=== PATIENT | male | born 1990 | race Caucasian/White ===

== ENCOUNTER 2017-02-07 16:44 | Inpatient (IN) | payer OTHER ==
[2017-02-07 18:01] VITALS: BMI 30.7
--- NOTE | 2017-02-07 20:14 | HP ---
COWS - Scale Resting Pulse: 2= [place] 101-120 Sweatin=Flushed/Facial Moisture Restless Observation: 5= Unable to Sit Still Pupil Size: 1= Pupils >than Normal Bone or Joint Aches: 4=Acute Joint/Muscle Pain Runny Nose/ Eye Tearin= Runny Nose/Eyes GI Upset > 30mins: 1= Stomach Cramp Tremor Observation: 1= Tremor [place], Not Seen Yawning Observation: 1= 1-2x During Session Anxiety or Irritability: 2=Irritable/Anxious Goose Flesh Skin: 0=Smooth Skin COWS Score: 21 Admission ROS S - HPI Chief Complaint: seeking detox for heroin withdrawal Allergies/Adverse Reactions: Allergies Allergy/AdvReac Type Severity Reaction Status Date / Time No Known Allergies Allergy Verified 02/07/17 19:35 History of Present Illness: 26 Y.O. MALE WITH OPIOID DEPENDENCE HERE FOR DETOX TXMENT. CLIENT IS KNOWN TO THIS PROGRAM. DENIES ANY DETOX THIS PAST YEAR. REPORTS LONGEST CLEAN 18 MONTHS RELAPSING A YEAR AGO. SELF REFERRED Exam Limitations: No Limitations - Ebola screening Have you traveled outside of the country in the last 21 days: No Have you had contact with anyone from an Ebola affected area: No Have you been sick,other than usual withdrawal symptoms: No Do you have a fever: No - Review of Systems Constitutional: Chills, Malaise, Night Sweats EENT: reports: Other (RUNNY NOSE) Respiratory: reports: No Symptoms reported Cardiac: reports: No Symptoms Reported GI: reports: Abdominal cramping : reports: No Symptoms Reported Musculoskeletal: reports: Joint Pain Integumentary: reports: No Symptoms Reported Neuro: reports: No Symptoms reported Endocrine: reports: No Symptoms Reported Hematology: reports: No Symptoms Reported Psychiatric: reports: Anxious Other Systems: Reviewed and Negative Patient History - Patient Medical History Hx Anemia: No Hx Asthma: No Hx Chronic Obstructive Pulmonary Disease (COPD): No Hx Cancer: No Hx Cardiac Disorders: No Hx Congestive Heart Failure: No Hx Hypertension: No Hx Hypercholesterolemia: No Hx Pacemaker: No HX Cerebrovascular Accident: No Hx Seizures: No Hx Dementia: No Hx Diabetes: No Hx Gastrointestinal Disorders: No Hx Liver Disease: No Hx Genitourinary Disorders: No Hx Sexually Transmitted Disorders: No Hx Renal Disease (ESRD): No Hx Thyroid Disease: No Hx Human Immunodeficiency Virus (HIV): No Hx Hepatitis C: No Hx Depression: No Hx Suicide Attempt: No Hx Bipolar Disorder: No Hx Schizophrenia: No Other Medical History: DENIES - Patient Surgical History Past Surgical History: Yes Hx Neurologic Surgery: No Hx Cataract Extraction: No Hx Cardiac Surgery: No Hx Lung Surgery: No Hx Breast Surgery: No Hx Breast Biopsy: No Hx Abdominal Surgery: No Hx Appendectomy: No Hx Cholecystectomy: No Hx Genitourinary Surgery: No Hx Section: No Hx Orthopedic Surgery: Yes (L -ANKLE 2009) Other Surgical History: R HEEL FX Anesthesia Reaction: No - PPD History Previous Implant?: Yes Documented Results: Negative w/o proof Implanted On Prior [facility] Admission?: Yes Date: 05/06/13 Results: 0MM PPD to be Administered?: Yes - Smoking Cessation Smoking history: Current every day smoker Have you smoked in the past 12 months: Yes Aproximately how many cigarettes per day: 10 Cigars Per Day: 0 Hx Chewing Tobacco Use: No Initiated information on smoking cessation: Yes 'Breaking Loose' booklet given: 02/07/17 - Substance & Tx. History Hx Alcohol Use: No Hx Substance Use: Yes Substance Use Type: Cocaine, Heroin Hx Substance Use Treatment: Yes ([facility]) - Substances Abused Heroin Route: Injection Frequency: Daily Amount used: 1.5 gm Age of first use: 24 Date of Last Use: 02/07/17 COCAINE Route: Injection Frequency: Daily Amount used: 1.5GM Age of first use: 24 Date of Last Use: 02/07/17 Family Disease History - Family Disease History Family History: Denies Admission Physical Exam S - Vital Signs Vital Signs: Vital Signs - 24 hr 02/07/17 17:59 Temperature 98.4 F Pulse Rate 107 H Respiratory 18 Rate Blood Pressure 132/81 - Physical General Appearance: Yes: Appropriately Dressed, Anxious HEENTM: Yes: EOMI, Normocephalic, Normal Voice, ASAEL, Pharynx Normal, Rhinorrhea Respiratory: Yes: Chest Non-Tender, Lungs Clear, Normal Breath Sounds, No Respiratory Distress, No Accessory Muscle Use Neck: Yes: No masses,lesions,Nodules, Supple, Trachea in good position Breast: Yes: Breast Exam Deferred Cardiology: Yes: Regular Rhythm, Regular Rate, S1, S2 Abdominal: Yes: Normal Bowel Sounds, Non Tender, Soft Genitourinary: Yes: Within Normal Limits Back: Yes: Normal Inspection Musculoskeletal: Yes: full range of Motion, Gait Steady Extremities: Yes: Normal Range of Motion, Non-Tender, Tremors Neurological: Yes: 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 NML intact, Fully Oriented, Alert, Motor Strength 5/5 Integumentary: Yes: Track Bob (BILATERAL UPPER EXTREMITIES) Lymphatic: Yes: Within Normal Limits - Diagnostic (1) Cocaine dependence Current Visit: Yes Status: Chronic Qualifiers: Substance use status: uncomplicated Qualified Code(s): F14.20 - Cocaine dependence, uncomplicated (2) Opioid dependence with withdrawal Current Visit: Yes Status: Chronic Cleared for Admission [facility] - Detox or Rehab [facility] Level of Care: Medically Managed Detox Regimen/Protocol: Methadone [facility] Breath Alcohol Content Breath Alcohol Content: 0 Urine Drug Screen - Results Drug Screen Negative: No Urine Drug Screen Results: ALHAJI-Cocaine, OPI-Opiates, MET-Methamphetamine
[2017-02-07] MEDS ORDERED: MENTHOL/PHENOL 1 EACH UD MM PRN (20:23)
[2017-02-07] MEDS ORDERED: hydrOXYzine PAMOATE 50 MG CAPSULE (FP) PO PRN (20:23)
[2017-02-07] MEDS ORDERED: MAG HYDROX/AL HYDROX/SIMETH 30 ML UNIT-DOSE CUP PO PRN (20:23)
[2017-02-07] MEDS ORDERED: IBUPROFEN 400 MG TABLET (FP) PO PRN (20:23)
[2017-02-07] MEDS ORDERED: MAGNESIUM CITRATE 300 ML BOTTLE PO PRN (20:23)
[2017-02-07] MEDS ORDERED: ACETAMINOPHEN 325 MG TABLET (FP) PO PRN (20:23)
[2017-02-07] MEDS ORDERED: METHADONE HCL 10 MG TABLET (FOR DETOX USE ONLY) PO ONE ×2 (20:23→23:00)
[2017-02-07] MEDS ORDERED: P-EPHED 60MG/TRIPROLIDI 2.5MG TABLET PO PRN (20:23)
[2017-02-07] MEDS ORDERED: NICOTINE POLACRILEX 4 MG GUM BC PRN (20:23)
[2017-02-07] MEDS ORDERED: MAGNESIUM HYDROX 2400MG/30ML ORAL SUSPENSION 30 ML CUP PO PRN (20:23)
[2017-02-07] MEDS ORDERED: guaiFENesin/D-METHORPHAN HB 10 ML UNIT-DOSE CUPS PO PRN (20:23)
[2017-02-07] MEDS ORDERED: LOPERAMIDE HCL 2 MG CAPSULE PO PRN (20:23)
[2017-02-07] MEDS: THIAMINE HCL 100 MG TABLET (FP) PO SCH (22:17)
[2017-02-07] MEDS: diazePAM 5 MG TABLET PO PRN (22:18)
[2017-02-08] MEDS ORDERED: METHADONE HCL 10 MG TABLET (FOR DETOX USE ONLY) PO ONE (10:00)
--- NOTE | 2017-02-08 10:04 | PN ---
BHS COWS - Scale Resting Pulse: 2= [place] 101-120 Sweatin= Chills/Flushing Restless Observation: 1= Difficult to Sit Still Pupil Size: 1= Pupils >than Normal Bone or Joint Aches: 1= Mild Discomfort Runny Nose/ Eye Tearin= Nasal Congestion GI Upset > 30mins: 2= Nausea/Diarrhea Tremor Observation of Outstretched Hands: 1= Tremor [place], Not Seen Yawning Observation: 1= 1-2x During Session Anxiety or Irritability: 2=Irritable/Anxious Goose Flesh Skin: 3=Piloerection COWS Score: 16 BHS Progress Note (SOAP) Subjective: nausea, sweats, interrupted sleep, anxiety, tremors, thirsty, depressed Objective: 02/08/17 10:02 Vital Signs - 24 hr 02/07/17 02/07/17 02/08/17 17:59 22:00 00:30 Temperature 98.4 F 98.2 F Pulse Rate 107 H 78 Respiratory 18 18 18 Rate Blood Pressure 132/81 117/63 02/08/17 06:00 Temperature 97.7 F Pulse Rate 62 Respiratory 18 Rate Blood Pressure 105/64 labs still pending Assessment: 02/08/17 10:03 withdrawal sx, depression, dehydration Plan: cont detox, fluids, check labs, psych consult
[2017-02-08 10:05] LABS: MCHC 33.2 g/dl (32.0-35.9); MEAN CELL VOLUME 81.2 fl (80-96); PLATELET COUNT 234 K/MM3 (134-434); RDW 14.9 % (11.9-15.9); WHITE BLOOD COUNT 7.5 K/mm3 (4.0-10.0)
--- NOTE | 2017-02-08 10:19 | EKG ---
Test Reason : Blood Pressure : / mmHG Vent. Rate : 073 BPM Atrial Rate : 073 BPM P-R Int : 154 ms QRS Dur : 086 ms QT Int : 378 ms P-R-T Axes : 068 068 023 degrees QTc Int : 416 ms NORMAL SINUS RHYTHM WITH SINUS ARRHYTHMIA NORMAL ECG NO PREVIOUS ECGS AVAILABLE Confirmed by LIAN LAMA, RAD ([id number]) on 02/08/2017 10:18:57 AM Referred By: Confirmed By:RAD BEAL MD
[2017-02-08 10:26] LABS: ALBUMIN 3.6 g/dl (3.4-5.0); ALK PHOS 64 U/L (45-117); ANION GAP 5 (8-16); BILIRUBIN,TOTAL 0.5 mg/dL (0.2-1.0); CALCIUM 8.8 mg/dL (8.5-10.1); CO2 30 mmol/L (21-32); CREATININE 1.2 mg/dL (0.7-1.3); GLUCOSE,RANDOM 73 mg/dL (74-106); SGOT/AST 40 U/L (15-37); SGPT/ALT 100 U/L (12-78); TOT PROT 7.8 g/dl (6.4-8.2)
[2017-02-08] MEDS: PRENATAL VITAMINS W/ FOLIC ACID TABLET (FP) PO SCH (10:59)
[2017-02-08] MEDS: diazePAM 5 MG TABLET PO PRN ×2 (11:00→22:13)
[2017-02-08] MEDS: NICOTINE 14 MG/24 HOURS TOPICAL PATCH TD SCH (11:00)
[2017-02-08 11:18] LABS: HIV 1 & 2 AB NEGATIVE; HIV 1 AGp24 NEGATIVE
--- NOTE | 2017-02-08 16:49 | CONSULT ---
[facility] Psychiatric Consult - Data Date of interview: 02/08/17 Admission source: [facility] Identifying data: Readmission to [facility] for this 26 y/o male seeking detox treatment on for heroin and cocaine dependence.Patient is single without children,domiciled and employed. Substance Abuse History: Confirmed by the patient isn this session.Smoking history: Current every day smoker. Have you smoked in the past 12 months: Yes. Aproximately how many cigarettes per day: 10. Cigars Per Day: 0. Hx Chewing Tobacco Use: No. Initiated information on smoking cessation: Yes. 'Breaking Loose' booklet given: 02/07/17. - Substance & Tx. History. Hx Alcohol Use: No. Hx Substance Use: Yes. Substance Use Type: Cocaine, Heroin. Hx Substance Use Treatment: Yes ([facility]). - Substances Abused. Heroin. Route: Injection. Frequency: Daily. Amount used: 1.5 gm. Age of first use: 24. Date of Last Use: 02/07/17. COCAINE. Route: Injection. Frequency: Daily. Amount used: 1.5GM. Age of first use: 24. Date of Last Use: 02/07/17 Medical History: Patient reports good general health.Noted history of orthosurgery for fracture of left ankle (2009). Psychiatric History: Patient denies. Physical/Sexual Abuse/Trauma History: Patient denies. Additional Comment: Urine Drug Screen Results: ALHAJI-Cocaine, OPI-Opiates, MET- Methamphetamine.Noted. Mental Status Exam - Mental Status Exam Alert and Oriented to: Time, Place, Person Cognitive Function: Good Patient Appearance: Well Groomed Mood: Hopeful, Euthymic Affect: Normal Range Patient Behavior: Appropriate, Cooperative Speech Pattern: Clear, Appropriate Voice Loudness: Normal Thought Process: Intact, Goal Oriented Thought Disorder: Not Present Hallucinations: Denies Suicidal Ideation: Denies Homicidal Ideation: Denies Insight/Judgement: Poor Sleep: Poorly, Difficulty falling asleep Appetite: Good Muscle strength/Tone: Normal Gait/Station: Normal Psychiatric Findings - Problem List ([place] 1, 2,3) (1) Opioid dependence with withdrawal Current Visit: Yes Status: Acute (2) Cocaine dependence Current Visit: Yes Status: Acute Qualifiers: Substance use status: uncomplicated Qualified Code(s): F14.20 - Cocaine dependence, uncomplicated (3) Insomnia Current Visit: Yes Status: Acute - Initial Treatment Plan Initial Treatment Plan: Psychoeducation.Sleep hygiene recommended.Detoxfication in effect.Seroquel 100 mg po hs.Side effects/benfits discussed with the patient.He agrees with this careplan.Observation.
[2017-02-08] MEDS: THIAMINE HCL 100 MG TABLET (FP) PO SCH (22:13)
[2017-02-08] MEDS: QUEtiapine FUMARATE 100 MG TABLET (FP) PO SCH (22:13)
[2017-02-09] MEDS ORDERED: METHADONE HCL 5 MG TABLET (FOR DETOX USE ONLY) PO ONE (10:00)
[2017-02-09] MEDS: diazePAM 5 MG TABLET PO PRN ×2 (10:48→22:09)
[2017-02-09] MEDS: PRENATAL VITAMINS W/ FOLIC ACID TABLET (FP) PO SCH (10:48)
[2017-02-09] MEDS: NICOTINE 14 MG/24 HOURS TOPICAL PATCH TD SCH (10:48)
--- NOTE | 2017-02-09 12:16 | PN ---
BHS COWS - Scale Resting Pulse: 0= OR 80 or Below Sweatin=Flushed/Facial Moisture Restless Observation: 1= Difficult to Sit Still Pupil Size: 0= Normal to Room Light Bone or Joint Aches: 2= Severe Diffuse Aches Runny Nose/ Eye Tearin= Runny Nose/Eyes GI Upset > 30mins: 2= Nausea/Diarrhea Tremor Observation of Outstretched Hands: 2= Slight Tremor Visible Yawning Observation: 2= >3x During Session Anxiety or Irritability: 2=Irritable/Anxious Goose Flesh Skin: 0=Smooth Skin COWS Score: 15 BHS Progress Note (SOAP) Subjective: irritable body aches shakes sweats interrupted sleep Objective: 02/09/17 12:15 Vital Signs Temperature 98.3 F 02/09/17 10:00 Pulse Rate 80 02/09/17 10:00 Respiratory Rate 18 02/09/17 10:00 Blood Pressure 120/70 02/09/17 10:00 O2 Sat by Pulse Oximetry (%) Laboratory Tests 02/08/17 02/08/17 02/08/17 07:00 07:00 07:00 WBC 7.5 RBC 5.16 Hgb 13.9 Hct 41.9 MCV 81.2 MCH 27.0 MCHC 33.2 RDW 14.9 D Plt Count 234 MPV 8.0 Sodium 136 Potassium 4.7 Chloride 101 Carbon Dioxide 30 Anion Gap 5 L BUN 23 H D Creatinine 1.2 D Creat Clearance w eGFR > 60 Random Glucose 73 L D Calcium 8.8 Total Bilirubin 0.5 D AST 40 H D ALT 100 H D Alkaline Phosphatase 64 Total Protein 7.8 Albumin 3.6 RPR Titer HIV 1&2 Antibody Screen Negative HIV P24 Antigen Negative 02/08/17 07:00 WBC RBC Hgb Hct MCV MCH MCHC RDW Plt Count MPV Sodium Potassium Chloride Carbon Dioxide Anion Gap BUN Creatinine Creat Clearance w eGFR Random Glucose Calcium Total Bilirubin AST ALT Alkaline Phosphatase Total Protein Albumin RPR Titer Nonreactive HIV 1&2 Antibody Screen HIV P24 Antigen aaox3 ambulating no acute distress Assessment: 02/09/17 12:15 withdrawal sx Plan: continue detox increase fluids
[2017-02-09] MEDS: THIAMINE HCL 100 MG TABLET (FP) PO SCH (22:09)
[2017-02-09] MEDS: QUEtiapine FUMARATE 100 MG TABLET (FP) PO SCH (22:09)
[2017-02-09 22:24] LABS: URINE APPEARANCE CLEAR; URINE BILIRUBIN NEGATIVE (NEGATIVE); URINE BLOOD NEGATIVE (NEGATIVE); URINE COLOR YELLOW; URINE GLUCOSE (UA) NEGATIVE (NEGATIVE); URINE KETONE NEGATIVE (NEGATIVE); URINE NITRITE NEGATIVE (NEGATIVE); URINE PROTEIN NEGATIVE (NEGATIVE); URINE UROBILINOGEN NEGATIVE mg/dL (0.2-1.0)
[2017-02-10 09:27] VITALS: TEMP 97.7
[2017-02-10] MEDS ORDERED: METHADONE HCL 5 MG TABLET (FOR DETOX USE ONLY) PO ONE (10:00)
[2017-02-10] MEDS: PRENATAL VITAMINS W/ FOLIC ACID TABLET (FP) PO SCH (10:14)
[2017-02-10] MEDS: NICOTINE 14 MG/24 HOURS TOPICAL PATCH TD SCH (10:14)
[2017-02-10] MEDS: diazePAM 5 MG TABLET PO PRN (10:17)
--- NOTE | 2017-02-10 12:21 | PN ---
BHS Progress Note (SOAP) Subjective: I am feeling so much better I want to go home tomorrow Objective: 02/10/17 12:17 Vital Signs Temperature 97.7 F 02/10/17 09:26 Pulse Rate 90 02/10/17 09:26 Respiratory Rate 20 02/10/17 09:26 Blood Pressure 117/74 02/10/17 09:26 O2 Sat by Pulse Oximetry (%) aaox3 ambulating no acute distress Assessment: 02/10/17 12:17 mild withdrawal sx Plan: continue detox methadone decreased down to 10mg x one for tomorrow and d/c in the am
[2017-02-10 13:16] LABS: URINE LEUK ESTERASE Negative (NEGATIVE)
[2017-02-10 17:16] VITALS: BP 122/82; PULSE 96
--- NOTE | 2017-02-10 22:41 | DS ---
[facility] Detox Discharge Summary Admission Date: 02/07/17 Discharge Date: 02/10/17 - History Present History: Opioid Dependence Pertinent Past History: patient refuses face to face with the provider to discuss after care chart review that the patient refuses aftercare left the facility immediately due to "need to go to work" as per nursing report - Physical Exam Results Vital Signs: Vital Signs Temperature 97.7 F 02/10/17 17:15 Pulse Rate 96 H 02/10/17 17:15 Respiratory Rate 20 02/10/17 17:15 Blood Pressure 122/82 02/10/17 17:15 O2 Sat by Pulse Oximetry (%) Pertinent Admission Physical Exam Findings: withdrawal sx Laboratory Last Values WBC 7.5 K/mm3 (4.0-10.0) 02/08/17 07:00 RBC 5.16 M/mm3 (4.00-5.60) 02/08/17 07:00 Hgb 13.9 GM/dL (11.7-16.9) 02/08/17 07:00 Hct 41.9 % (35.4-49) 02/08/17 07:00 MCV 81.2 fl (80-96) 02/08/17 07:00 MCH 27.0 pg (25.7-33.7) 02/08/17 07:00 MCHC 33.2 g/dl (32.0-35.9) 02/08/17 07:00 RDW 14.9 % (11.9-15.9) D 02/08/17 07:00 Plt Count 234 K/MM3 (134-434) 02/08/17 07:00 MPV 8.0 fl (7.5-11.1) 02/08/17 07:00 Sodium 136 mmol/L (136-145) 02/08/17 07:00 Potassium 4.7 mmol/L (3.5-5.1) 02/08/17 07:00 Chloride 101 mmol/L (98-107) 02/08/17 07:00 Carbon Dioxide 30 mmol/L (21-32) 02/08/17 07:00 Anion Gap 5 (8-16) L 02/08/17 07:00 BUN 23 mg/dL (7-18) H D 02/08/17 07:00 Creatinine 1.2 mg/dL (0.7-1.3) D 02/08/17 07:00 Creat Clearance w eGFR > 60 (>60) 02/08/17 07:00 Random Glucose 73 mg/dL (74-106) L D 02/08/17 07:00 Calcium 8.8 mg/dL (8.5-10.1) 02/08/17 07:00 Total Bilirubin 0.5 mg/dL (0.2-1.0) D 02/08/17 07:00 AST 40 U/L (15-37) H D 02/08/17 07:00 ALT 100 U/L (12-78) H D 02/08/17 07:00 Alkaline Phosphatase 64 U/L (45-117) 02/08/17 07:00 Total Protein 7.8 g/dl (6.4-8.2) 02/08/17 07:00 Albumin 3.6 g/dl (3.4-5.0) 02/08/17 07:00 Urine Color Yellow 02/09/17 15:00 Urine Appearance Clear 02/09/17 15:00 Urine pH 7.0 (5.0-8.0) 02/09/17 15:00 Ur Specific [place] 1.016 (1.001-1.035) 02/09/17 15:00 Urine Protein Negative (NEGATIVE) 02/09/17 15:00 Urine Glucose (UA) Negative (NEGATIVE) 02/09/17 15:00 Urine Ketones Negative (NEGATIVE) 02/09/17 15:00 Urine Blood Negative (NEGATIVE) 02/09/17 15:00 Urine Nitrite Negative (NEGATIVE) 02/09/17 15:00 Urine Bilirubin Negative (NEGATIVE) 02/09/17 15:00 Urine Urobilinogen Negative mg/dL (0.2-1.0) 02/09/17 15:00 Ur Leukocyte Esterase Negative (NEGATIVE) 02/09/17 15:00 RPR Titer Nonreactive (NONREACTIVE) 02/08/17 07:00 HIV 1&2 Antibody Screen Negative 02/08/17 07:00 HIV P24 Antigen Negative 02/08/17 07:00 lab noted - Treatment Hospital Course: Detox Protocol Followed, Responded well Patient has Accepted a Rehab Referral to: patient refuses aftercare as per counselor - Medication Discharge Medications: Ambulatory Orders Quetiapine Fumarate [Seroquel] 100 mg PO HS #30 tablet 02/08/17 - Diagnosis (1) Opioid dependence with withdrawal Status: Acute - AMA Did Patient Leave Against Medical Advice: Yes
[2017-02-11] MEDS ORDERED: METHADONE HCL 10 MG TABLET (FOR DETOX USE ONLY) PO ONE ×2 (06:00→10:00)
[2017-02-12] MEDS ORDERED: METHADONE HCL 5 MG TABLET (FOR DETOX USE ONLY) PO ONE (06:00)
== END 2017-02-10 19:32 | disposition left against medical advice (07) | DRG 773 ==
LOC: YASAS 16:44 → Y6N 20:14
PROVIDERS: ADMIT Internal Medicine; ATTEND Internal Medicine
PROC: HZ2ZZZZ Detoxification Services for Substance Abuse Treatment (ICD-10-PCS; principal; 2017-02-07)
DX: F11.23 Opioid dependence with withdrawal (principal); F14.20 Cocaine dependence, uncomplicated; F17.210 Nicotine dependence, cigarettes, uncomplicated; F32.9 Major depressive disorder, single episode, unspecified; G47.00 Insomnia, unspecified; E86.0 Dehydration; E66.9 Obesity, unspecified; Z68.30 Body mass index [BMI] 30.0-30.9, adult
CPT/HCPCS: 36415; 80053; 81003; 85027; 86593; 87389; 93005; 93010